=== PATIENT | female | born 1950 | race Caucasian/White ===

== ENCOUNTER 2019-11-30 15:50 | Emergency (ER) | payer MEDICARE, OTHER, SELFPAY ==
--- NOTE | ~2019-11-30 | XR_ITS ---
EXAMINATION: XR chest 1V portable 11/30/2019 18:24 INDICATION: Cough PROCEDURE: AP portable chest COMPARISON: No prior studies for comparison. FINDINGS: The lungs are clear. The cardiomediastinal silhouette is within normal limits. There are no pleural effusions. There is no pneumothorax suspected. There are healed right rib fractures. IMPRESSION: 1: NO ACUTE CARDIOPULMONARY DISEASE. Reviewed, dictated and finalized at location A. [facility]
--- NOTE | ~2019-11-30 | CT_ITS ---
EXAMINATION: CT abdomen pelvis w con DATE: 11/30/2019 18:24 INDICATION: Abdominal pain with vomiting and diarrhea. TECHNIQUE: Computed tomography (CT) of the abdomen and pelvis was performed without intravenous contr ast. The dose-length product was 511.97 mGy-cm. Automated exposure control and iterative reconstructi on technique were employed. COMPARISON: No prior studies for comparison. FINDINGS: Lung bases unremarkable. Heart size normal. No significant vascular abnormality. No lymphad enopathy. No bowel obstruction. There is moderate fluid in the colon with air-fluid levels. There is abnormal thickening of the mid and distal small bowel extending to the ileocecal valve. No significan t small bowel dilation. No abnormal pelvic masses or fluid collections. There is a percutaneous drain in the left hepatic lobe. Status post cholecystectomy. The spleen, panc reas, adrenal glands are unremarkable. There are bilateral renal parapelvic cysts. Severe lower thora cic and lumbar spondylosis. IMPRESSION: 1. Abnormal thickening with enhancement of the middistal-small bowel extending to the terminal ileum which may be infectious or inflammatory (i.e. Crohn's disease). No obstruction. Moderate fluid in the colon, consistent with history of diarrhea. Reviewed, dictated and finalized at location A. [facility] IMPRESSION: 1. Abnormal thickening with enhancement of the middistal-small bowel extending to the terminal ileum which may be infectious or inflammatory (i.e. Crohn's dis ease). No obstruction. Moderate fluid in the colon, consistent with history of diarrhea.
[2019-11-30 16:19] VITALS: BP 131/74; PULSE 91; RESP 18; TEMP 36.1; O2SAT 96
--- NOTE | 2019-11-30 17:08 | ED.GENADULT ---
HPI - General Adult General Chief complaint: Nausea/Vomiting/Diarrhea <Porter Mcgovern MD - Last Filed: 12/05/19 07:14> Stated complaint: ambulance <Porter Mcgovern MD - Last Filed: 12/05/19 07:14> Time Seen by Provider: 11/30/19 18:24 <Porter Mcgovern MD - Last Filed: 12/05/19 07:14> Source: patient <Porter Mcgovern MD - Last Filed: 12/05/19 07:14> Mode of arrival: EMS <Porter Mcgovern MD - Last Filed: 12/05/19 07:14> Limitations: no limitations <Porter Mcgovern MD - Last Filed: 12/05/19 07:14> History of Present Illness HPI narrative: 69 y.o. with biliary tract cancer being followed at [facility]. She has been vomiting and had diarrhea since 11/26 associated with abdominal pain. She was hospitalized at [facility] the and but symptoms continued at home. Vomits and defecates day and night, she estimates at least 10x/day. Symptoms worse today; cannot keep food or fluids down. Her pain is mid-abdominal, particularly associated with episodes of diarrhea and vomiting. She started her first round of capecitabine around 3 weeks ago (2 weeks on, 1 week of) when she had similar adverse reactions, not as severe. Her dose was decreased to 2000 mg BID. The 2nd round started on Nov 17 (2 week regimen) which was stopped on the . Symptoms have not improved. Oncologist attributed symptoms to chemotherapy, capecitabine 1500 mg BID, 2 weeks on, 1 week off. She started her first round in late October. She had less intense but similar side effects with her first round. She denies fevers/chills. She's had a cough for the last 3- 4 days which makes her abd. pain worse. <Porter Mcgovern MD - Last Filed: 12/05/19 07:14> Related Data Home medications: Home Medications Medication Instructions Recorded Confirmed Centrum Complete 1 tablet BYMOUTH DAILY 11/30/19 11/30/19 Effexor XR 75 mg DAILY 11/30/19 11/30/19 Zofran 8 mg PO PRN PRN 11/30/19 11/30/19 aspirin 325 mg BYMOUTH DAILY 11/30/19 11/30/19 famotidine 20 mg BYMOUTH BIDAC 11/30/19 11/30/19 venlafaxine 37.5 mg DAILY 11/30/19 11/30/19 <Porter Mcgovern MD - Last Filed: 12/05/19 07:14> Allergies/adverse reactions: Allergies Allergy/AdvReac Type Severity Reaction Status Date / Time No Known Allergies Allergy Verified 11/30/19 16:25 <Porter Mcgovern MD - Last Filed: 12/05/19 07:14> Review of Systems Constitutional: Constitutional: Reports anorexia, Reports fatigue, Reports headache(s) (mild-moderate, intermittent), Reports lethargy and Denies night sweats <Porter Mcgovern MD - Last Filed: 12/05/19 07:14> Eyes: Eyes: Denies change in vision <Porter Mcgovern MD - Last Filed: 12/05/19 07:14> ENT: Reports dry mouth, Denies mouth lesions and Denies sore throat <Porter Mcgovern MD - Last Filed: 12/05/19 07:14> Cardiovascular: Cardiovascular: Denies chest pain, Denies syncope and Denies edema <Porter Mcgovern MD - Last Filed: 12/05/19 07:14> Respiratory: Respiratory: Denies dyspnea <Porter Mcgovern MD - Last Filed: 12/05/19 07:14> Gastrointestinal: Gastrointestinal: Denies melena, Denies hematochezia and Denies hematemesis <Porter Mcgovern MD - Last Filed: 12/05/19 07:14> Genitourinary: Genitourinary: Denies dysuria <Porter Mcgovern MD - Last Filed: 12/05/19 07:14> Musculoskeletal: Musculoskeletal: Denies back pain and Reports muscle weakness <Porter Mcgovern MD - Last Filed: 12/05/19 07:14> Integumentary/Breasts: Skin/Breast: Denies rash and Denies skin ulcer <Porter Mcgovern MD - Last Filed: 12/05/19 07:14> Neurologic: Denies burning sensations and Denies confusion <Porter Mcgovern MD - Last Filed: 02/27/20 07:14> Psychiatric: Psychiatric: Denies hopelessness and Denies irritability <Porter Mcgovern MD - Last Filed: 12/05/19 07:14> Endocrine: Endocrine: Reports cold intolerance <Porter Mcgovern MD - Last Filed: 12/05/19 07:14> Hematologic/Lymphatic: Hematologic/Lymphatic: D
[2019-11-30] MEDS: ONDANSETRON INJ 4 MG/2 ML VIAL IV PUSH ×2 (17:10→21:22)
[2019-11-30 17:36] LABS: Basophils Absolute Auto 0.02 K/mm3 (0.00-0.10); Basophils Percent Auto 0.5 % (0.0-1.0); Eosinophils Percent Auto 2.5 % (1.0-6.0); Hematocrit 29.7 % (35.0-42.0); Hemoglobin 10.2 g/dL (11.7-13.8); Immature Granulocyte Absolute 0.03 K/mm3 (0.00-0.00); Immature Granulocyte Percent A 0.7 % (0.0-0.0); Lymphocytes Absolute Auto 0.54 K/mm3 (1.10-4.50); Lymphocytes Percent Auto 13.3 % (18.0-42.0); Mean Corpuscular HGB Conc 34.3 g/dL (32.0-36.0); Mean Corpuscular Hemoglobin 32.7 pg (27.0-31.0); Mean Corpuscular Volume 95.2 fL (78.0-102.0); Mean Platelet Volume 8.3 fl (9.2-11.8); Monocytes Absolute Auto 0.44 K/mm3 (0.10-0.90); Monocytes Percent Auto 10.8 % (2.0-11.0); Neutrophils Absolute Auto 2.9 K/mm3 (1.7-7.2); Neutrophils Percent Auto 72.2 % (50.0-70.0); Platelet Count Result 328 K/mm3 (150-420); Red Blood Count 3.12 M/mm3 (4.20-5.40); Red Cell Distribution Width 19.8 % (11.6-14.4); White Blood Count 4.1 K/mm3 (4.8-10.8)
[2019-11-30] MEDS: SODIUM CHLORIDE 0.9% IV 1,000 ML 999 ML IV CONT ×2 (17:40→19:02)
[2019-11-30 17:51] LABS: Alanine Aminotransferase 68 U/L (14-59); Albumin Level 3.4 g/dL (3.4-5.0); Alkaline Phosphatase 172 U/L (46-116); Anion Gap 12.3 mmol/L (7-16); Aspartate Amino Transferase 54 U/L (15-37); Blood Urea Nitrogen 15 mg/dL (7-18); Calcium 8.2 mg/dL (8.5-10.1); Carbon Dioxide 28 mmol/L (21-32); Chloride 98 mmol/L (98-108); Estimated Glomerular Filt Rate > 60; Glucose 134 mg/dL (70-99); Lipase 41 U/L (73-393); Osmolality Calculated 282 mOsm/kg (285-295); Potassium 3.3 mmol/L (3.5-5.1); Sodium 135 mmol/L (136-145); Total Protein 7.2 g/dL (6.4-8.2)
--- NOTE | 2019-11-30 17:56 | PC.NURSE ---
PT. INC. OF JEZ MAC LIQ. STOOL. LINENS CHANGED.
[2019-11-30 18:18] LABS: Magnesium 2.1 mg/dL (1.8-2.4)
[2019-11-30] MEDS: ACETAMINOPHEN 325 MG TABLET 650 MG PO (18:49)
--- NOTE | 2019-11-30 19:08 | PC.NURSE ---
UP TO BEDSIDE TO COMMMODE WITH ASSISTANCE VOIDED 200 ML CLEAR YELLOW URINE.
[2019-11-30 19:20] LABS: Add Urine Microscopic? NO; Appearance Urine Clear (Clear); Bilirubin Urine Negative (Negative); Blood Urine Negative (Negative); Color Urine Yellow (Yellow); Glucose Urine UA Negative (Negative); Ketones Urine Negative (Negative); Leukocyte Esterase Ur Negative (Negative); Nitrate Urine Negative (Negative); Protein Urine Negative (Negative); Specific Grav Ur <= 1.005 (1.010-1.020); Urobilinogen Urine 0.2 mg/dL (0.2-1.0); pH Urine 6.5 (5.0-8.0)
--- NOTE | 2019-11-30 19:23 | PC.NURSE ---
[facility] CALLED AWAITING RETURN CALL FROM [facility] . PT RESTING ON STREACHER IV CONT TO RUN WO.
--- NOTE | 2019-11-30 20:18 | PC.NURSE ---
DR. BEAR SPEAKS WITH DR. LENNON @ [facility] WILL ACCEPT PT. BUT PT.WILL BE ON WAITING LIST. [facility] HAS NO BEDS AT THIS TIME.PT. AWARE. AND AGREES TO PLAN OF CARE. PT STATES HAS LESS PAIN.NO VOMITING NOTED WHILE IN ER. LESS NAUSEA ALSO.
[2019-11-30 20:27] VITALS: BP 130/65; PULSE 96; RESP 16; TEMP 37.9; O2SAT 99
--- NOTE | 2019-11-30 20:45 | PC.NURSE ---
REPORT GIVEN TO [facility]. PT TO BE ER HOLD. TO RM 209 PER STREACHER IN STABLE CONDITION.
[2019-11-30 20:47] VITALS: BP 110/73; PULSE 72; RESP 18; TEMP 36.6; O2SAT 97
[2019-11-30] MEDS: KCL 20MEQ/0.9% SOD CHL 1,000 ML 100 ML IV CONT (21:21)
[2019-11-30] MEDS: PROMETHAZINE HCL 25 MG TABLET PO (21:46)
[2019-11-30 23:51] VITALS: BP 111/58; PULSE 96; RESP 14; TEMP 37.9; O2SAT 100
[2019-12-01] MEDS: ONDANSETRON INJ 4 MG/2 ML VIAL IV PUSH ×4 (02:19→19:30)
[2019-12-01 04:24] VITALS: BP 109/58; PULSE 92; RESP 14; TEMP 38.1; O2SAT 95
[2019-12-01 07:37] VITALS: BP 113/60; PULSE 83; RESP 20; TEMP 36.9; O2SAT 96
[2019-12-01 08:02] LABS: Anion Gap 15.4 mmol/L (7-16); Blood Urea Nitrogen 10 mg/dL (7-18); Calcium 7.7 mg/dL (8.5-10.1); Carbon Dioxide 23 mmol/L (21-32); Chloride 100 mmol/L (98-108); Estimated Glomerular Filt Rate > 60; Glucose 112 mg/dL (70-99); Osmolality Calculated 280 mOsm/kg (285-295); Potassium 3.4 mmol/L (3.5-5.1); Sodium 135 mmol/L (136-145)
[2019-12-01] MEDS: KCL 20MEQ/0.9% SOD CHL 1,000 ML 100 ML IV CONT ×2 (08:32→21:58)
[2019-12-01] MEDS: MORPHINE SULFATE 2 MG/ML INJ IV PUSH ×4 (08:33→21:58)
--- NOTE | 2019-12-01 10:33 | PC.NURSE ---
Report to Teagan Pleitez on pt. status and awaiting bed for transfer to [place].
[2019-12-01 10:40] LABS: Hematocrit 26.1 % (35.0-42.0); Hemoglobin 8.8 g/dL (11.7-13.8); Mean Corpuscular HGB Conc 33.7 g/dL (32.0-36.0); Mean Corpuscular Hemoglobin 32.5 pg (27.0-31.0); Mean Corpuscular Volume 96.3 fL (78.0-102.0); Mean Platelet Volume 8.7 fl (9.2-11.8); Platelet Count Result 332 K/mm3 (150-420); Red Blood Count 2.71 M/mm3 (4.20-5.40); Red Cell Distribution Width 20.7 % (11.6-14.4); White Blood Count 5.5 K/mm3 (4.8-10.8)
[2019-12-01 11:05] LABS: Lactic Acid 0.8 mmol/L (0.4-2.0)
[2019-12-01 11:11] LABS: Alanine Aminotransferase 84 U/L (14-59); Albumin Level 2.5 g/dL (3.4-5.0); Alkaline Phosphatase 160 U/L (46-116); Aspartate Amino Transferase 66 U/L (15-37); Bilirubin Direct 0.3 mg/dL (0-0.2); Bilirubin,Total 0.9 mg/dL (0.00-1.00); CRP 7.4 mg/dL (0.0-0.9); Total Protein 5.7 g/dL (6.4-8.2)
[2019-12-01 11:23] LABS: Band Neutrophils Percent 12 % (0-6); Basophils Absolute Manual 0.05 K/mm3 (0-0.1); Basophils Percent Manual 1 % (0-1); Eosinophils Percent Manual 0 % (1-6); Lymphocytes Percent Manual 31 % (18-44); Metamyelocytes Percent 1 %; Monocytes Absolute Manual 0.77 K/mm3 (0.1-0.90); Monocytes Percent Manual 14 % (3-9); Myelocytes Percent 1 %; Neutrophils Absolute Manual 2.86 K/mm3 (1.7-7.2); Neutrophils Percent Manual 40 % (46-73); Total Cells Counted 100
[2019-12-01 11:24] LABS: Platelet Estimate Adequate (Adequate)
[2019-12-01 12:04] VITALS: BP 113/63; PULSE 83; RESP 20; TEMP 37; O2SAT 98
[2019-12-01 12:10] LABS: Occult Blood Negative (Negative)
[2019-12-01] MEDS: FAMOTIDINE 20 MG TABLET PO (14:34)
--- NOTE | 2019-12-01 15:16 | PC.NURSE ---
Patient had refused Pepcid in AM due to nausea. 1630 dose given early per patient request.
[2019-12-01 16:51] VITALS: BP 120/64; PULSE 85; RESP 20; TEMP 36.9; O2SAT 98
[2019-12-01 18:27] LABS: Hematocrit 30.7 % (35.0-42.0); Hemoglobin 9.6 g/dL (11.7-13.8)
--- NOTE | 2019-12-01 19:25 | PC.NURSE ---
Called re: NS bolus pts. K 4.3 and Na 134, will check labs after bouls finnished.
[2019-12-01] MEDS: SODIUM CHLORIDE 0.9% IV 1,000 ML 999 ML IV CONT (19:30)
[2019-12-01 21:14] VITALS: BP 123/65; PULSE 88; RESP 14; TEMP 37.3; O2SAT 99
[2019-12-01 21:49] LABS: Anion Gap 13.1 mmol/L (7-16); Blood Urea Nitrogen 8 mg/dL (7-18); Calcium 7.6 mg/dL (8.5-10.1); Carbon Dioxide 24 mmol/L (21-32); Chloride 102 mmol/L (98-108); Estimated Glomerular Filt Rate > 60; Glucose 104 mg/dL (70-99); Magnesium 1.9 mg/dL (1.8-2.4); Osmolality Calculated 280 mOsm/kg (285-295); Potassium 3.1 mmol/L (3.5-5.1); Sodium 136 mmol/L (136-145)
--- NOTE | 2019-12-01 22:03 | PC.NURSE ---
received notificatin from [facility] at [place], there is a bed available at this time in room [address]. Pt aware, [facility] called for transport. they won't transfer her due to her being a [place] resident. [facility] notified of need for transfer.
--- NOTE | 2019-12-01 22:32 | PC.NURSE ---
report called to Savanna CRAWFORD at [place].
[2019-12-01 22:35] VITALS: BP 145/68; PULSE 88; RESP 14; TEMP 37.4; O2SAT 99
--- NOTE | 2019-12-01 22:36 | PC.NURSE ---
pt assisted to the commode, incontinent of stool. pericare provided. assisted to miranda sanchez sent with patient. left unit with 2 paramedics. IVF infusing as ordered upon exit form unit.
== END 2019-12-01 22:53 | disposition short-term general hospital (02) ==
PROVIDERS: Family Medicine; Emergency Provider Emergency Medicine
DX: R11.10 Vomiting, unspecified (principal); R19.7 Diarrhea, unspecified; C76.8 Malignant neoplasm of other specified ill-defined sites; R10.9 Unspecified abdominal pain
CPT/HCPCS: 36415; 71045; 74177; 80048; 80053; 80076; 81003; 82272; 83605; 83690; 83735; 85014; 85018; 85025; 86140; 87045; 87046; 87086; 87088; 87324; 87427; 89055; 96361; 96365; 96366; 96375; 96376; 99285; A9270; J2270; J2405; J3480; J7030; Q9965

== ENCOUNTER 2020-04-09 10:24 | Emergency (ER) | payer MEDICARE, OTHER, SELFPAY ==
--- NOTE | 2020-04-09 10:33 | ED.WOUNDLAC ---
HPI - Wound/Laceration General Stated Complaint: cut Finger Time Seen by Provider: 04/09/20 10:33 Source: patient Mode of arrival: ambulatory Limitations: no limitations History of Present Illness HPI narrative: 69-year-old who comes in today complaining of a laceration on her left long finger. She was reaching into a mailbox and cut it on A sharp edge. She denies numbness or tingling. She does not recall her last tetanus shot. Onset (ago): hour(s) (1) Extremity Location: Left: hand ( Long finger) Place: home Context: accidental Associated symptoms: pain Treatments prior to arrival: bandage Related Data Home Medications Medication Instructions Recorded Confirmed Centrum Complete 1 tablet BYMOUTH DAILY 11/30/19 11/30/19 Effexor XR 75 mg DAILY 11/30/19 11/30/19 Zofran 8 mg PO PRN PRN 11/30/19 11/30/19 aspirin 325 mg BYMOUTH DAILY 11/30/19 11/30/19 famotidine 20 mg BYMOUTH BIDAC 11/30/19 11/30/19 Allergies Allergy/AdvReac Type Severity Reaction Status Date / Time No Known Allergies Allergy Verified 11/30/19 16:25 Review of Systems Constitutional: Constitutional: Denies chills and Denies fever(s) Musculoskeletal: Musculoskeletal: Denies arthralgias and Denies joint swelling Integumentary/Breasts: Skin/Breast: Denies pruritus, Denies erythema and Denies rash Neurologic: Denies vertigo, Denies dizziness and Denies syncope Hematologic/Lymphatic: Hematologic/Lymphatic: Denies easy bleeding and Denies easy bruising Allergic/Immunologic: Allergic/Immunologic: Denies lip swelling and Denies wheezing PMFSH Past Medical History Medical History (Updated 04/09/20 @ 11:06 by Porter Herndon MD) Bile duct cancer Surgical History Surgical History (Updated 04/09/20 @ 11:01 by Porter Herndon MD) History of common bile duct surgery Social History Social History Social History: Lives by herself. Has 2 sons, both work and see her when they can. Smoking status: Never smoker Gender identity (if verbalized by the patient): Female Exam Const: General: healthy appearing and alert Limitations: no limitations Other: mild acute distress. Resp: Effort & Inspection: normal respiratory effort and not labored Auscultation: clear to auscultation bilaterally, no rales, no rhonchi and no wheezes Cardio: Rate: regular rate Rhythm: regular rhythm Heart sounds: no murmurs Skin: General skin exam: normal color, no jaundice and no pallor Rashes: no rashes Other: 1.5 cm transverse laceration on the pad of the left long finger. No foreign bodies present. Joint is not exposed. Neuro: General: patient oriented x3, moves all extremities, no focal motor deficits and CN's II-XI intact bilaterally Speech: normal speech Extrem: General: normal to inspection and no clubbing, cyanosis or edema Psych: Appearance: grossly normal and well kempt Mental Status: mental status grossly normal Affect: normal affect Attitude: cooperative Thought content: Yes Normal thought content present Procedures Laceration Laceration 1: Date: 04/09/20 Time: 10:40 Site: hand ( Left long finger pad) Side (If applicable): left Size (cm): 1.5 Description: linear and clean Depth: simple, single layer Local Anesthetic: lidocaine 1% Amount of anesthesia used (mL): 2 ====== Skin Level ====== Skin layer closed with: nylon Size (cm): 4-0 Number of sutures: 3 Technique: simple, interrupted ====== Subcutaneous Layer ====== ====== Muscle Layer ====== ====== Tendon Layer ====== Discharge Plan Discharge Clinical Impression: Finger laceration Patient Disposition: Home, Self-Care Condition: Stable Instructions: Care For Your Stitches (ED), Laceration (ED) Additional Instructions: Three sutures to come out in 10 days. Prescriptions: No Action Centrum C
[2020-04-09] MEDS: TETANUS,DIPHTHERIA,AC PERTUSSIS ADULT 0.5 ML (ADACEL) IM (10:46)
[2020-04-09 10:50] VITALS: BP 131/67; PULSE 78; RESP 17; TEMP 36.8; O2SAT 97
== END 2020-04-09 11:15 | disposition home or self-care (01) ==
PROVIDERS: Emergency Provider Emergency Medicine
DX: S61.213A Laceration without foreign body of left middle finger without damage to nail, initial encounter (principal); W45.8XXA Other foreign body or object entering through skin, initial encounter
CPT/HCPCS: 12001; 90471; 90715; 99282